=== PATIENT | female | born 1965 | race African-American/Black ===

== ENCOUNTER 2020-01-22 19:59 | Inpatient (IN) | payer MEDICAID ==
[~2020-01-22] VITALS: Ht 167.6 cm; Wt 72.6 kg
[2020-01-22 22:11] LABS: HEMATOCRIT. 38.8 % (36.0-48.0); HEMOGLOBIN. 12.9 g/dL (12.0-16.0); MEAN CORPUSCULAR HEMOGLOBIN 33.5 pg (28.0-32.0); MEAN CORPUSCULAR VOLUME 101.4 fL (81.0-99.0); MEAN PLATELET VOLUME 9.5 fl (7.4-10.4); PLATELET 222 x1000/uL (130-400); RED BLOOD CELL COUNT 3.83 mill/uL (4.2-5.4); RED CELL DISTRIBUTION WIDTH 19.8 % (11.6-14.6)
[2020-01-22 22:17] LABS: CHLORIDE 101 mEq/L (98-107)
[2020-01-22 22:22] LABS: INR 1.1; PARTIAL THROMBOPLASTIN TIME 28.8 sec (23.4-31.0); PROTHROMBIN TIME 11.4 sec (9.6-11.0)
[2020-01-22] MEDS ORDERED: NICARDIPINE 100 MG in SODIUM CHLORIDE 0.9% 60 ML IV PRN (23:15)
[2020-01-22] MEDS ORDERED: MORPHINE SULFATE 2 MG/ML CPJ (NOT FOR IM USE) IV PRN (23:15)
[2020-01-22 23:19] LABS: PLATELET ESTIMATE NORMAL
[2020-01-22] MEDS ORDERED: NICARDIPINE 50 MG in SODIUM CHLORIDE 0.9% 230 ML IV STA (23:23)
[2020-01-23] VITALS (55 sets, daily range): BP systolic 111–172; BP diastolic 62–94
[2020-01-23] MEDS: NICARDIPINE 100 MG in SODIUM CHLORIDE 0.9% 60 ML IV PRN ×2 (09:00→21:36)
[2020-01-23] MEDS ORDERED: ONDANSETRON HCL 4MG/2ML INJ IV PRN (11:15)
[2020-01-23] MEDS ORDERED: NIFEDIPINE XL 30MG TAB PO SCH (13:45)
[2020-01-23] MEDS: PANTOPRAZOLE SODIUM 40 MG/VIAL IV SCH ×2 (14:15→14:20)
[2020-01-23] MEDS: NIFEDIPINE XL 30MG TAB PO SCH (15:13)
[2020-01-23] MEDS: BENAZEPRIL 10MG TABLET PO SCH (15:14)
[2020-01-23] MEDS: SEVELAMER CARBONATE 800 MG TABLET PO SCH (17:29)
[2020-01-23] MEDS: ATORVASTATIN CALCIUM 10MG TABLET PO SCH (20:38)
[2020-01-23] MEDS: CARVEDILOL 6.25 MG TABLET PO SCH (20:38)
[2020-01-24] VITALS (88 sets, daily range): BP systolic 109–181; BP diastolic 57–129
[2020-01-24 07:30] LABS: HEMATOCRIT. 36.4 % (36.0-48.0); HEMOGLOBIN. 12.3 g/dL (12.0-16.0); MEAN CORPUSCULAR HEMOGLOBIN 33.7 pg (28.0-32.0); MEAN CORPUSCULAR VOLUME 99.8 fL (81.0-99.0); MEAN PLATELET VOLUME 8.3 fl (7.4-10.4); PLATELET 204 x1000/uL (130-400); RED BLOOD CELL COUNT 3.64 mill/uL (4.2-5.4); RED CELL DISTRIBUTION WIDTH 19.2 % (11.6-14.6)
[2020-01-24 08:03] LABS: PHOSPHORUS 5.4 mg/dL (2.5-4.9)
[2020-01-24] MEDS: PANTOPRAZOLE SODIUM 40 MG/VIAL IV SCH (09:24)
[2020-01-24] MEDS: SEVELAMER CARBONATE 800 MG TABLET PO SCH ×3 (09:24→18:16)
[2020-01-24] MEDS: FOLIC ACID/VITAMIN B COMP W-C TABLET PO SCH (09:24)
[2020-01-24] MEDS: BENAZEPRIL 10MG TABLET PO SCH (09:25)
[2020-01-24] MEDS: NIFEDIPINE XL 30MG TAB PO SCH (09:25)
[2020-01-24] MEDS: CARVEDILOL 6.25 MG TABLET PO SCH (09:26)
[2020-01-24 14:23] LABS: PLATELET ESTIMATE NORMAL
[2020-01-24] MEDS ORDERED: PIPERACILLIN/TAZOBACTAM 3.375 G in DEXT 5% WATER 100 ML IV SCH (16:00)
[2020-01-24] MEDS: PIPERACILLIN/TAZOBACTAM 2.25 G in DEXTROSE 5% WATER 50 ML IV SCH (18:18)
[2020-01-24] MEDS: ATORVASTATIN CALCIUM 10MG TABLET PO SCH (21:14)
[2020-01-24] MEDS: CARVEDILOL 12.5MG TABLET PO SCH (21:14)
[2020-01-25] VITALS: BP 123/67
[2020-01-25 04:55] VITALS: BP 157/84
[2020-01-25] MEDS: PIPERACILLIN/TAZOBACTAM 2.25 G in DEXTROSE 5% WATER 50 ML IV SCH (05:03)
[2020-01-25] MEDS: SEVELAMER CARBONATE 800 MG TABLET PO SCH ×2 (06:36→13:09)
[2020-01-25 07:55] LABS: HEMATOCRIT. 37.5 % (36.0-48.0); HEMOGLOBIN. 12.4 g/dL (12.0-16.0); MEAN CORPUSCULAR HEMOGLOBIN 33.3 pg (28.0-32.0); MEAN CORPUSCULAR VOLUME 100.7 fL (81.0-99.0); MEAN PLATELET VOLUME 8.8 fl (7.4-10.4); PLATELET 188 x1000/uL (130-400); RED BLOOD CELL COUNT 3.72 mill/uL (4.2-5.4)
[2020-01-25 08:00] VITALS: BP 152/76
[2020-01-25] MEDS ORDERED: BENAZEPRIL 10MG TABLET PO SCH ×2 (09:00→21:00)
[2020-01-25] MEDS ORDERED: FAMOTIDINE 20MG/2ML VIAL IV SCH (09:00)
[2020-01-25] MEDS: FOLIC ACID/VITAMIN B COMP W-C TABLET PO SCH (09:12)
[2020-01-25] MEDS: CARVEDILOL 12.5MG TABLET PO SCH (09:13)
[2020-01-25 10:26] LABS: PLATELET ESTIMATE NORMAL
[2020-01-25 12:00] VITALS: BP 157/77
[2020-01-25 13:36] VITALS: BP 157/77
[2020-01-25] MEDS ORDERED: NIFEDIPINE XL 30MG TAB PO SCH (14:00)
[2020-01-25] MEDS ORDERED: BENA20TA10 MT (17:44)
[2020-01-25] MEDS ORDERED: HYDR-4001 MT (17:44)
[2020-01-25] MEDS ORDERED: CARV25TA47 MT (17:44)
[2020-01-25] MEDS ORDERED: LIP40 MT (17:44)
== END 2020-01-25 15:40 | disposition home or self-care (01) | DRG 44 ==
LOC: ER 19:59 → 5EST 22:57 → ENRESERV 01-23 08:04 → 5WST 01-24 23:58
PROVIDERS: ADMIT Internal Medicine; ATTEND Internal Medicine
PROC: 5A1D70Z Performance of Urinary Filtration, Intermittent, Less than 6 Hours Per Day (ICD-10-PCS; principal; 2020-01-24)
DX: I61.3 Nontraumatic intracerebral hemorrhage in brain stem (principal); I13.2 Hypertensive heart and chronic kidney disease with heart failure and with stage 5 chronic kidney disease, or end stage renal disease; L51.1 Stevens-Johnson syndrome; E11.22 Type 2 diabetes mellitus with diabetic chronic kidney disease; E44.0 Moderate protein-calorie malnutrition; I42.9 Cardiomyopathy, unspecified; E83.39 Other disorders of phosphorus metabolism; N18.6 End stage renal disease; I50.23 Acute on chronic systolic (congestive) heart failure; G89.29 Other chronic pain; K21.9 Gastro-esophageal reflux disease without esophagitis; E78.5 Hyperlipidemia, unspecified; J45.909 Unspecified asthma, uncomplicated; N25.81 Secondary hyperparathyroidism of renal origin; Z82.49 Family history of ischemic heart disease and other diseases of the circulatory system; Z68.25 Body mass index [BMI] 25.0-25.9, adult; Z83.3 Family history of diabetes mellitus; Z86.718 Personal history of other venous thrombosis and embolism; Z90.49 Acquired absence of other specified parts of digestive tract; Z99.2 Dependence on renal dialysis; Z79.899 Other long term (current) drug therapy; Z88.8 Allergy status to other drugs, medicaments and biological substances
CPT/HCPCS: 36415; 70551; 71045; 80048; 80053; 80061; 82962; 83880; 84100; 84145; 84443; 84484; 85025; 93005; 93306; 93970; 99291; C9113; J2270; J2543; J3490; J7050; J7060

== ENCOUNTER 2020-08-27 22:32 | Inpatient (IN) | payer MEDICAID, OTHER ==
[~2020-08-27] VITALS: Ht 167.6 cm; Wt 80.7 kg
[~2020-08-27 22:32] MED LIST: BENA20TA10 MT; CARV25TA47 MT; HYDR-4001 MT; LIP40 MT
[2020-08-28] MEDS ORDERED: ASPIRIN 81MG TABLET PO ONE
[2020-08-28 00:26] LABS: HEMOGLOBIN. 12.1 g/dL (12.0-16.0); MEAN CORPUSCULAR HEMOGLOBIN 31.6 pg (28.0-32.0); MEAN CORPUSCULAR VOLUME 96.7 fL (81.0-99.0); MEAN PLATELET VOLUME 9.3 fl (7.4-10.4); PLATELET 192 x1000/uL (130-400); RED BLOOD CELL COUNT 3.83 mill/uL (4.2-5.4)
[2020-08-28 00:34] LABS: CHLORIDE 101 mEq/L (98-107)
[2020-08-28] MEDS ORDERED: ACETAMINOPHEN 500MG TABLET PO ONE (03:00)
[2020-08-28 03:04] LABS: PLATELET ESTIMATE NORMAL
[2020-08-28] MEDS ORDERED: BENAZEPRIL 10MG TABLET PO SCH (11:15)
[2020-08-28] MEDS ORDERED: ONDANSETRON HCL 4MG/2ML INJ IV PRN (11:15)
[2020-08-28] MEDS ORDERED: ALBUTEROL 6.7GM HFA INHALER ORI PRN (11:15)
[2020-08-28] MEDS: ENOXAPARIN 30MG/0.3ML SYR SUBCUT SCH (12:00)
[2020-08-28] MEDS: CLONIDINE 0.1MG TABLET PO PRN (15:38)
[2020-08-28] MEDS: PIPERACILLIN/TAZOBACTAM 2.25 G in DEXTROSE 5% WATER 50 ML IV SCH (15:43)
[2020-08-28] MEDS: NIFEDIPINE XL 60MG TAB PO SCH (16:15)
[2020-08-28 22:34] LABS: CHLORIDE 105 mEq/L (98-107)
[2020-08-28 23:41] LABS: HEMATOCRIT. 34.7 % (36.0-48.0); HEMOGLOBIN. 11.4 g/dL (12.0-16.0); MEAN CORPUSCULAR HEMOGLOBIN 31.9 pg (28.0-32.0); MEAN CORPUSCULAR VOLUME 97.2 fL (81.0-99.0); MEAN PLATELET VOLUME 9.3 fl (7.4-10.4); PLATELET 146 x1000/uL (130-400); RED BLOOD CELL COUNT 3.57 mill/uL (4.2-5.4); RED CELL DISTRIBUTION WIDTH 20.7 % (11.6-14.6)
[2020-08-29] MEDS ORDERED: SODIUM POLYSTYRENE SULFONATE 15 G/60 ML BOT PO SCH (01:30)
[2020-08-29 04:44] LABS: ATYPICAL LYMPHOCYTES 1; PLATELET ESTIMATE NORMAL
[2020-08-29] MEDS ORDERED: SODIUM POLYSTYRENE SULFONATE 15 G/60 ML BOT PO NR (06:00)
[2020-08-29] MEDS: PIPERACILLIN/TAZOBACTAM 2.25 G in DEXTROSE 5% WATER 50 ML IV SCH (06:28)
[2020-08-29 06:57] LABS: BASOPHILS % 0.7 % (0.0-2.0); EOSINOPHILS % 0.1 % (0.0-5.0); HEMATOCRIT. 35.5 % (36.0-48.0); HEMOGLOBIN. 11.7 g/dL (12.0-16.0); LYMPHOCYTES % 14.4 % (20.0-50.0); MEAN CORPUSCULAR HEMOGLOBIN 31.9 pg (28.0-32.0); MEAN CORPUSCULAR VOLUME 96.7 fL (81.0-99.0); MEAN PLATELET VOLUME 9.3 fl (7.4-10.4); MONOCYTES % 12.6 % (2.0-8.0); NEUTROPHILS % 72.2 % (40.0-76.0); PLATELET 143 x1000/uL (130-400); RED BLOOD CELL COUNT 3.68 mill/uL (4.2-5.4); RED CELL DISTRIBUTION WIDTH 21.2 % (11.6-14.6)
[2020-08-29 07:17] LABS: CHLORIDE 106 mEq/L (98-107)
[2020-08-29 07:23] LABS: PHOSPHORUS 5.7 mg/dL (2.5-4.9)
[2020-08-29] MEDS: ENOXAPARIN 30MG/0.3ML SYR SUBCUT SCH (11:51)
[2020-08-29] MEDS: NIFEDIPINE XL 60MG TAB PO SCH ×3 (11:51→21:00)
[2020-08-29] MEDS: BENAZEPRIL 10MG TABLET PO SCH ×2 (12:00→21:00)
[2020-08-30] MEDS: ACETAMINOPHEN 325MG TABLET PO PRN ×4 (01:41→23:03)
[2020-08-30] MEDS: MORPHINE SULFATE 2 MG/ML CPJ (NOT FOR IM USE) IV PRN (04:46)
[2020-08-30 08:51] LABS: BASOPHILS % 0.3 % (0.0-2.0); EOSINOPHILS % 0.1 % (0.0-5.0); LYMPHOCYTES % 7.1 % (20.0-50.0); MEAN CORPUSCULAR HEMOGLOBIN 32.7 pg (28.0-32.0); MEAN CORPUSCULAR VOLUME 97.7 fL (81.0-99.0); MEAN PLATELET VOLUME 10.4 fl (7.4-10.4); MONOCYTES % 11.3 % (2.0-8.0); NEUTROPHILS % 81.2 % (40.0-76.0); PLATELET 176 x1000/uL (130-400); RED BLOOD CELL COUNT 2.76 mill/uL (4.2-5.4); RED CELL DISTRIBUTION WIDTH 20.4 % (11.6-14.6)
[2020-08-30 08:58] LABS: PHOSPHORUS 5.6 mg/dL (2.5-4.9)
[2020-08-30] MEDS: BENAZEPRIL 10MG TABLET PO SCH ×2 (09:00→21:00)
[2020-08-30] MEDS: NIFEDIPINE XL 60MG TAB PO SCH ×2 (09:00→21:00)
[2020-08-30 12:00] VITALS: BP 106/64
[2020-08-30] MEDS: PIPERACILLIN/TAZOBACTAM 2.25 G in DEXTROSE 5% WATER 50 ML IV SCH ×2 (12:08→18:04)
[2020-08-30] MEDS: ENOXAPARIN 30MG/0.3ML SYR SUBCUT SCH (12:11)
[2020-08-30 13:47] VITALS: BP 170/76
[2020-08-30 16:00] VITALS: BP 138/43
[2020-08-30] MEDS ORDERED: INFLUENZA VACCINE 05/PF 0.5 ML VIAL IM ONE (19:00)
[2020-08-30] MEDS ORDERED: PNEUMOCOCCAL 23-VAL P-SAC VAC 0.5 ML IM ONE (19:00)
[2020-08-30 20:00] VITALS: BP 111/75
[2020-08-30] MEDS: HYDRALAZINE HCL 50MG TABLET PO SCH (21:00)
[2020-08-30] MEDS ORDERED: HEPARIN SODIUM 1,000 UNIT/1ML VIAL IV NR (23:30)
[2020-08-31] VITALS: BP 114/80
[2020-08-31] MEDS: NIFEDIPINE XL 60MG TAB PO SCH ×3 (00:27→22:25)
[2020-08-31] MEDS: BENAZEPRIL 10MG TABLET PO SCH ×3 (00:28→22:24)
[2020-08-31] MEDS ORDERED: METOPROLOL TARTRATE 50MG TABLET PO SCH ×2 (01:00→09:00)
[2020-08-31] MEDS: PIPERACILLIN/TAZOBACTAM 2.25 G in DEXTROSE 5% WATER 50 ML IV SCH ×3 (02:10→18:49)
[2020-08-31 04:00] VITALS: BP_SYST 114; BP_SYST 144; BP_DIAS 80; BP_DIAS 89
[2020-08-31 07:59] LABS: BASOPHILS % 0.3 % (0.0-2.0); LYMPHOCYTES % 8.5 % (20.0-50.0); MEAN CORPUSCULAR HEMOGLOBIN 31.7 pg (28.0-32.0); MEAN CORPUSCULAR VOLUME 95.6 fL (81.0-99.0); MONOCYTES % 9.5 % (2.0-8.0); NEUTROPHILS % 81.7 % (40.0-76.0); PLATELET 157 x1000/uL (130-400); RED BLOOD CELL COUNT 3.57 mill/uL (4.2-5.4); RED CELL DISTRIBUTION WIDTH 20.4 % (11.6-14.6)
[2020-08-31 08:12] LABS: CHLORIDE 103 mEq/L (98-107)
[2020-08-31 08:13] LABS: HEMATOCRIT. 34.1 % (36.0-48.0); HEMOGLOBIN. 11.3 g/dL (12.0-16.0)
[2020-08-31 08:20] LABS: PHOSPHORUS 5.6 mg/dL (2.5-4.9)
[2020-08-31 08:57] LABS: C REACTIVE PROTEIN QUANT > 190.0 mg/L (0.0-3.0)
[2020-08-31 09:32] VITALS: BP 134/73
[2020-08-31] MEDS: HYDRALAZINE HCL 50MG TABLET PO SCH ×2 (10:27→22:24)
[2020-08-31] MEDS: ENOXAPARIN 30MG/0.3ML SYR SUBCUT SCH (10:28)
[2020-08-31 12:00] VITALS: BP 140/51
[2020-08-31 16:00] VITALS: BP 119/39
[2020-08-31] MEDS: ACETAMINOPHEN 325MG TABLET PO PRN (18:50)
[2020-08-31 20:00] VITALS: BP 124/68
[2020-08-31] MEDS: CARVEDILOL 12.5MG TABLET PO SCH (22:25)
[2020-09-01] VITALS (7 sets, daily range): BP systolic 93–107; BP diastolic 22–68
[2020-09-01] MEDS: PIPERACILLIN/TAZOBACTAM 2.25 G in DEXTROSE 5% WATER 50 ML IV SCH ×3 (05:08→19:38)
[2020-09-01] MEDS: NIFEDIPINE XL 60MG TAB PO SCH ×2 (09:00→22:59)
[2020-09-01] MEDS ORDERED: HYDRALAZINE HCL 25MG TABLET PO SCH (09:00)
[2020-09-01] MEDS: CARVEDILOL 12.5MG TABLET PO SCH ×2 (09:00→23:00)
[2020-09-01] MEDS: ENOXAPARIN 30MG/0.3ML SYR SUBCUT SCH (09:13)
[2020-09-01] MEDS: DEXAMETHASONE 4MG/ML 1ML VIAL IV SCH (09:13)
[2020-09-02] VITALS: BP 105/65
[2020-09-02 04:00] VITALS: BP 109/63
[2020-09-02 05:46] LABS: PHOSPHORUS 5.8 mg/dL (2.5-4.9)
[2020-09-02 07:05] LABS: BASOPHILS % 0.5 % (0.0-2.0); HEMATOCRIT. 31.7 % (36.0-48.0); HEMOGLOBIN. 10.6 g/dL (12.0-16.0); LYMPHOCYTES % 10.2 % (20.0-50.0); MEAN CORPUSCULAR HEMOGLOBIN 31.9 pg (28.0-32.0); MEAN CORPUSCULAR VOLUME 95.6 fL (81.0-99.0); MEAN PLATELET VOLUME 11.1 fl (7.4-10.4); MONOCYTES % 8.2 % (2.0-8.0); NEUTROPHILS % 81.1 % (40.0-76.0); PLATELET 146 x1000/uL (130-400); RED BLOOD CELL COUNT 3.31 mill/uL (4.2-5.4); RED CELL DISTRIBUTION WIDTH 20.4 % (11.6-14.6)
[2020-09-02 08:00] VITALS: BP 110/70
[2020-09-02] MEDS: NIFEDIPINE XL 60MG TAB PO SCH (08:12)
[2020-09-02] MEDS: CARVEDILOL 12.5MG TABLET PO SCH (08:12)
[2020-09-02] MEDS: DEXAMETHASONE 4MG/ML 1ML VIAL IV SCH (09:22)
[2020-09-02] MEDS: ENOXAPARIN 30MG/0.3ML SYR SUBCUT SCH (09:23)
[2020-09-02] MEDS: MORPHINE SULFATE 2 MG/ML CPJ (NOT FOR IM USE) IV PRN (09:54)
[2020-09-02 12:00] VITALS: BP 126/72
[2020-09-02 16:00] VITALS: BP 101/61
[2020-09-02 20:00] VITALS: BP 113/64
[2020-09-03] MEDS: CARVEDILOL 12.5MG TABLET PO SCH ×2 (00:15→09:00)
[2020-09-03] MEDS: MORPHINE SULFATE 2 MG/ML CPJ (NOT FOR IM USE) IV PRN (02:56)
[2020-09-03 04:00] VITALS: BP 120/75
[2020-09-03 07:26] LABS: BASOPHILS % 0.4 % (0.0-2.0); HEMATOCRIT. 34.4 % (36.0-48.0); HEMOGLOBIN. 11.1 g/dL (12.0-16.0); LYMPHOCYTES % 7.9 % (20.0-50.0); MEAN CORPUSCULAR HEMOGLOBIN 31.3 pg (28.0-32.0); MEAN CORPUSCULAR VOLUME 97.1 fL (81.0-99.0); MEAN PLATELET VOLUME 11.2 fl (7.4-10.4); MONOCYTES % 8.7 % (2.0-8.0); PLATELET 186 x1000/uL (130-400); RED BLOOD CELL COUNT 3.55 mill/uL (4.2-5.4); RED CELL DISTRIBUTION WIDTH 19.8 % (11.6-14.6)
[2020-09-03] MEDS: ENOXAPARIN 30MG/0.3ML SYR SUBCUT SCH (09:00)
[2020-09-03] MEDS ORDERED: NIFEDIPINE XL 30MG TAB PO SCH (09:00)
[2020-09-03] MEDS: DEXAMETHASONE 4MG/ML 1ML VIAL IV SCH (09:00)
[2020-09-03 09:52] VITALS: BP 102/66
[2020-09-03 13:36] VITALS: BP 117/64
[2020-09-03] MEDS: ACETAMINOPHEN 325MG TABLET PO PRN (16:27)
[2020-09-03 20:00] VITALS: BP 119/62
[2020-09-03] MEDS: CARVEDILOL 3.125 MG TABLET PO SCH (22:23)
[2020-09-04] VITALS: BP 120/70
[2020-09-04 04:00] VITALS: BP 143/83
[2020-09-04 09:08] LABS: BASOPHILS % 0.5 % (0.0-2.0); EOSINOPHILS % 0.1 % (0.0-5.0); HEMATOCRIT. 33.7 % (36.0-48.0); HEMOGLOBIN. 11.1 g/dL (12.0-16.0); LYMPHOCYTES % 10.5 % (20.0-50.0); MEAN CORPUSCULAR VOLUME 97.3 fL (81.0-99.0); MONOCYTES % 11.4 % (2.0-8.0); NEUTROPHILS % 77.5 % (40.0-76.0); PLATELET 182 x1000/uL (130-400); RED BLOOD CELL COUNT 3.47 mill/uL (4.2-5.4); RED CELL DISTRIBUTION WIDTH 20.4 % (11.6-14.6)
[2020-09-04 09:53] LABS: PHOSPHORUS 6.4 mg/dL (2.5-4.9)
[2020-09-04 09:54] VITALS: BP 135/70
[2020-09-04] MEDS: DEXAMETHASONE 4MG/ML 1ML VIAL IV SCH (10:16)
[2020-09-04] MEDS: CARVEDILOL 3.125 MG TABLET PO SCH ×2 (10:16→20:59)
[2020-09-04] MEDS: ENOXAPARIN 30MG/0.3ML SYR SUBCUT SCH (10:17)
[2020-09-04 13:24] VITALS: BP 149/72
[2020-09-04 16:51] VITALS: BP 148/65
[2020-09-04 20:00] VITALS: BP 153/68
[2020-09-05] VITALS: BP 138/65
[2020-09-05 04:00] VITALS: BP 140/68
[2020-09-05 08:00] VITALS: BP 161/72
[2020-09-05] MEDS: ENOXAPARIN 30MG/0.3ML SYR SUBCUT SCH (10:00)
[2020-09-05] MEDS: CARVEDILOL 3.125 MG TABLET PO SCH ×2 (10:01→21:00)
[2020-09-05 11:52] VITALS: BP 148/70
[2020-09-05] MEDS: DEXAMETHASONE 4MG/ML 1ML VIAL IV SCH (12:30)
[2020-09-05 16:40] VITALS: BP 171/89
[2020-09-05] MEDS: CLONIDINE 0.1MG TABLET PO PRN (18:27)
[2020-09-05 22:07] VITALS: BP 157/82
[2020-09-06] VITALS: BP 174/80
[2020-09-06] MEDS: CLONIDINE 0.1MG TABLET PO PRN (03:02)
[2020-09-06 04:00] VITALS: BP 196/74
[2020-09-06 08:00] VITALS: BP 155/44
[2020-09-06] MEDS: ENOXAPARIN 30MG/0.3ML SYR SUBCUT SCH (11:15)
[2020-09-06] MEDS: CARVEDILOL 3.125 MG TABLET PO SCH ×2 (11:15→21:17)
[2020-09-06] MEDS: DEXAMETHASONE 4MG/ML 1ML VIAL IV SCH (11:16)
[2020-09-06 12:00] VITALS: BP 143/76
[2020-09-06 16:00] VITALS: BP 161/43
[2020-09-06 20:00] VITALS: BP 152/80
[2020-09-07] VITALS: BP 148/66
[2020-09-07 04:00] VITALS: BP 160/89
[2020-09-07 07:01] LABS: BASOPHILS % 0.4 % (0.0-2.0); EOSINOPHILS % 0.1 % (0.0-5.0); HEMATOCRIT. 34.1 % (36.0-48.0); HEMOGLOBIN. 11.1 g/dL (12.0-16.0); LYMPHOCYTES % 10.1 % (20.0-50.0); MEAN CORPUSCULAR HEMOGLOBIN 31.2 pg (28.0-32.0); MEAN CORPUSCULAR VOLUME 95.6 fL (81.0-99.0); MEAN PLATELET VOLUME 10.1 fl (7.4-10.4); MONOCYTES % 9.5 % (2.0-8.0); NEUTROPHILS % 79.9 % (40.0-76.0); PLATELET 260 x1000/uL (130-400); RED BLOOD CELL COUNT 3.57 mill/uL (4.2-5.4); RED CELL DISTRIBUTION WIDTH 20.6 % (11.6-14.6)
[2020-09-07 08:00] VITALS: BP 189/57
[2020-09-07] MEDS: ENOXAPARIN 30MG/0.3ML SYR SUBCUT SCH (11:21)
[2020-09-07] MEDS: DEXAMETHASONE 4MG/ML 1ML VIAL IV SCH (11:24)
[2020-09-07] MEDS: CARVEDILOL 3.125 MG TABLET PO SCH ×2 (11:24→21:00)
[2020-09-07 12:00] VITALS: BP 152/80
[2020-09-07 16:00] VITALS: BP 157/65
[2020-09-07 20:00] VITALS: BP 125/80
[2020-09-08] VITALS: BP 130/60
[2020-09-08 04:00] VITALS: BP 161/76
[2020-09-08 05:37] LABS: PHOSPHORUS 7.5 mg/dL (2.5-4.9)
[2020-09-08 06:32] LABS: HEMATOCRIT. 32.7 % (36.0-48.0); MEAN CORPUSCULAR HEMOGLOBIN 32.8 pg (28.0-32.0); MEAN CORPUSCULAR VOLUME 97.5 fL (81.0-99.0); MEAN PLATELET VOLUME 9.1 fl (7.4-10.4); PLATELET 266 x1000/uL (130-400); RED BLOOD CELL COUNT 3.35 mill/uL (4.2-5.4); RED CELL DISTRIBUTION WIDTH 20.6 % (11.6-14.6)
[2020-09-08 08:00] VITALS: BP 159/92
[2020-09-08] MEDS: ENOXAPARIN 30MG/0.3ML SYR SUBCUT SCH (10:49)
[2020-09-08] MEDS: CARVEDILOL 3.125 MG TABLET PO SCH ×2 (10:50→20:45)
[2020-09-08] MEDS: DEXAMETHASONE 4MG/ML 1ML VIAL IV SCH (10:51)
[2020-09-08 12:00] VITALS: BP 139/73
[2020-09-08 16:00] VITALS: BP 131/71
[2020-09-08 20:00] VITALS: BP 156/75
[2020-09-08 20:27] LABS: PLATELET ESTIMATE NORMAL
[2020-09-09] VITALS: BP 182/83
[2020-09-09 04:00] VITALS: BP 123/68
[2020-09-09] MEDS: CLONIDINE 0.1MG TABLET PO PRN (06:04)
[2020-09-09 08:00] VITALS: BP 184/86
[2020-09-09] MEDS: ENOXAPARIN 30MG/0.3ML SYR SUBCUT SCH (09:43)
[2020-09-09] MEDS: DEXAMETHASONE 4MG/ML 1ML VIAL IV SCH (09:43)
[2020-09-09] MEDS: CARVEDILOL 3.125 MG TABLET PO SCH (09:44)
[2020-09-09 12:00] VITALS: BP 156/72
[2020-09-09 16:00] VITALS: BP 156/64
[2020-09-09 20:00] VITALS: BP 149/74
[2020-09-09] MEDS: CARVEDILOL 12.5MG TABLET PO SCH (20:58)
[2020-09-09 22:00] LABS: HEMATOCRIT. 32.4 % (36.0-48.0); HEMOGLOBIN. 10.9 g/dL (12.0-16.0); MEAN CORPUSCULAR HEMOGLOBIN 32.2 pg (28.0-32.0); MEAN CORPUSCULAR VOLUME 95.5 fL (81.0-99.0); MEAN PLATELET VOLUME 9.9 fl (7.4-10.4); PLATELET 258 x1000/uL (130-400); RED BLOOD CELL COUNT 3.39 mill/uL (4.2-5.4); RED CELL DISTRIBUTION WIDTH 20.6 % (11.6-14.6)
[2020-09-09 22:33] LABS: PLATELET ESTIMATE NORMAL
[2020-09-10] VITALS: BP 158/72
[2020-09-10] MEDS: CLONIDINE 0.1MG TABLET PO PRN (03:55)
[2020-09-10] MEDS: ACETAMINOPHEN 325MG TABLET PO PRN ×2 (03:59→10:29)
[2020-09-10 04:00] VITALS: BP 193/86
[2020-09-10 06:26] LABS: HEMATOCRIT. 32.7 % (36.0-48.0); HEMOGLOBIN. 10.9 g/dL (12.0-16.0); MEAN CORPUSCULAR HEMOGLOBIN 32.2 pg (28.0-32.0); MEAN CORPUSCULAR VOLUME 96.7 fL (81.0-99.0); MEAN PLATELET VOLUME 9.2 fl (7.4-10.4); PLATELET 283 x1000/uL (130-400); RED BLOOD CELL COUNT 3.38 mill/uL (4.2-5.4); RED CELL DISTRIBUTION WIDTH 21.1 % (11.6-14.6)
[2020-09-10 08:00] VITALS: BP 135/71
[2020-09-10] MEDS: CARVEDILOL 12.5MG TABLET PO SCH ×2 (09:00→22:21)
[2020-09-10 09:16] LABS: PHOSPHORUS 7.3 mg/dL (2.5-4.9)
[2020-09-10] MEDS: ENOXAPARIN 30MG/0.3ML SYR SUBCUT SCH (10:28)
[2020-09-10] MEDS: DEXAMETHASONE 4MG/ML 1ML VIAL IV SCH (10:29)
[2020-09-10 12:00] VITALS: BP 144/72
[2020-09-10 12:23] LABS: PLATELET ESTIMATE NORMAL
[2020-09-10 17:05] VITALS: BP 182/68
[2020-09-10] MEDS ORDERED: ALTEPLASE 2MG/VIAL INJ NR (18:00)
[2020-09-10 20:00] VITALS: BP 178/84
[2020-09-10] MEDS: CEFEPIME 1,000 MG in DEXTROSE 5% WATER 50 ML IV SCH (22:21)
[2020-09-11] VITALS: BP 132/51
[2020-09-11] MEDS: ACETAMINOPHEN 325MG TABLET PO PRN (01:03)
[2020-09-11 06:20] LABS: MEAN CORPUSCULAR HEMOGLOBIN 31.8 pg (28.0-32.0); MEAN PLATELET VOLUME 8.7 fl (7.4-10.4); PLATELET 184 x1000/uL (130-400); RED BLOOD CELL COUNT 3.13 mill/uL (4.2-5.4); RED CELL DISTRIBUTION WIDTH 21.6 % (11.6-14.6)
[2020-09-11 07:57] LABS: PHOSPHORUS 8.8 mg/dL (2.5-4.9)
[2020-09-11 08:00] VITALS: BP 160/70
[2020-09-11] MEDS: CARVEDILOL 12.5MG TABLET PO SCH ×2 (09:00→23:56)
[2020-09-11] MEDS: ENOXAPARIN 30MG/0.3ML SYR SUBCUT SCH (09:00)
[2020-09-11] MEDS: DEXAMETHASONE 4MG/ML 1ML VIAL IV SCH (09:00)
[2020-09-11 12:00] VITALS: BP 166/76
[2020-09-11] MEDS ORDERED: SODIUM BICARBONATE 8.4% 1 MEQ/ML 50ML SYR IV NR (15:00)
[2020-09-11] MEDS ORDERED: FUROSEMIDE 100MG/10ML VIAL IVP NR (15:00)
[2020-09-11 16:00] VITALS: BP 158/74
[2020-09-11] MEDS ORDERED: SODIUM POLYSTYRENE SULFONATE 15 G/60 ML BOT PO NR (16:00)
[2020-09-11 17:48] LABS: PLATELET ESTIMATE NORMAL
[2020-09-11 20:00] VITALS: BP 140/62
[2020-09-11] MEDS: CEFEPIME 1,000 MG in DEXTROSE 5% WATER 50 ML IV SCH (23:56)
[2020-09-12] VITALS: BP 145/67
[2020-09-12] MEDS: ACETAMINOPHEN 325MG TABLET PO PRN (00:01)
[2020-09-12 04:00] VITALS: BP 156/47
[2020-09-12 08:00] VITALS: BP 183/77
[2020-09-12 10:23] LABS: BASOPHILS % 0.5 % (0.0-2.0); EOSINOPHILS % 0.9 % (0.0-5.0); HEMATOCRIT. 29.1 % (36.0-48.0); HEMOGLOBIN. 9.7 g/dL (12.0-16.0); LYMPHOCYTES % 7.8 % (20.0-50.0); MEAN CORPUSCULAR HEMOGLOBIN 31.8 pg (28.0-32.0); MEAN CORPUSCULAR VOLUME 95.8 fL (81.0-99.0); MEAN PLATELET VOLUME 8.1 fl (7.4-10.4); MONOCYTES % 5.6 % (2.0-8.0); NEUTROPHILS % 85.2 % (40.0-76.0); PLATELET 173 x1000/uL (130-400); RED BLOOD CELL COUNT 3.04 mill/uL (4.2-5.4); RED CELL DISTRIBUTION WIDTH 22.9 % (11.6-14.6)
[2020-09-12 10:53] LABS: PHOSPHORUS 7.2 mg/dL (2.5-4.9)
[2020-09-12 12:00] VITALS: BP 118/54
[2020-09-12] MEDS: DEXAMETHASONE 4MG/ML 1ML VIAL IV SCH (13:03)
[2020-09-12] MEDS: CARVEDILOL 12.5MG TABLET PO SCH ×2 (13:03→23:13)
[2020-09-12] MEDS: ENOXAPARIN 30MG/0.3ML SYR SUBCUT SCH (13:03)
[2020-09-12 16:00] VITALS: BP 136/62
[2020-09-12 20:00] VITALS: BP 165/80
[2020-09-12 21:13] LABS: PLATELET ESTIMATE NORMAL
[2020-09-12] MEDS: CEFEPIME 1,000 MG in DEXTROSE 5% WATER 50 ML IV SCH (23:12)
[2020-09-13] VITALS: BP 186/71
[2020-09-13 04:00] VITALS: BP 169/85
[2020-09-13 08:00] VITALS: BP 190/91
[2020-09-13] MEDS: CARVEDILOL 12.5MG TABLET PO SCH ×2 (09:50→20:42)
[2020-09-13] MEDS: DEXAMETHASONE 4MG/ML 1ML VIAL IV SCH (09:51)
[2020-09-13] MEDS: ENOXAPARIN 30MG/0.3ML SYR SUBCUT SCH (09:51)
[2020-09-13 12:00] VITALS: BP 171/86
[2020-09-13] MEDS: CLONIDINE 0.1MG TABLET PO PRN (13:27)
[2020-09-13 14:15] LABS: HEMATOCRIT. 27.8 % (36.0-48.0); HEMOGLOBIN. 9.2 g/dL (12.0-16.0); MEAN CORPUSCULAR HEMOGLOBIN 32.3 pg (28.0-32.0); MEAN CORPUSCULAR VOLUME 97.2 fL (81.0-99.0); MEAN PLATELET VOLUME 8.5 fl (7.4-10.4); PLATELET 146 x1000/uL (130-400); RED BLOOD CELL COUNT 2.86 mill/uL (4.2-5.4)
[2020-09-13 14:29] LABS: PHOSPHORUS 7.3 mg/dL (2.5-4.9)
[2020-09-13 16:00] VITALS: BP 160/85
[2020-09-13 17:31] LABS: PLATELET ESTIMATE NORMAL
[2020-09-13 20:00] VITALS: BP 185/85
[2020-09-13] MEDS: CEFEPIME 1,000 MG in DEXTROSE 5% WATER 50 ML IV SCH (20:41)
[2020-09-14] VITALS: BP 170/86
[2020-09-14 04:00] VITALS: BP 157/80
[2020-09-14 07:04] LABS: BASOPHILS % 0.5 % (0.0-2.0); LYMPHOCYTES % 5.3 % (20.0-50.0); MEAN CORPUSCULAR HEMOGLOBIN 32.3 pg (28.0-32.0); MEAN CORPUSCULAR VOLUME 97.3 fL (81.0-99.0); MONOCYTES % 5.4 % (2.0-8.0); NEUTROPHILS % 88.8 % (40.0-76.0); PLATELET 129 x1000/uL (130-400); RED BLOOD CELL COUNT 2.77 mill/uL (4.2-5.4)
[2020-09-14 07:58] LABS: PHOSPHORUS 8.3 mg/dL (2.5-4.9)
[2020-09-14 08:00] VITALS: BP 163/77
[2020-09-14] MEDS: CARVEDILOL 12.5MG TABLET PO SCH (09:29)
[2020-09-14] MEDS: ENOXAPARIN 30MG/0.3ML SYR SUBCUT SCH (09:30)
[2020-09-14] MEDS: DEXAMETHASONE 4MG/ML 1ML VIAL IV SCH (09:30)
[2020-09-14 12:00] VITALS: BP 154/85
[2020-09-14] MEDS ORDERED: CARV25TA47 MT (13:49)
[2020-09-14 16:21] VITALS: BP 142/79
== END 2020-09-14 17:20 | disposition home or self-care (01) | DRG 720 ==
LOC: ER 22:32 → MICUSO 08-28 03:34 → 8WST 08-30 09:06
PROVIDERS: ADMIT Internal Medicine; ATTEND Internal Medicine
PROC: 5A1D70Z Performance of Urinary Filtration, Intermittent, Less than 6 Hours Per Day (ICD-10-PCS; principal; 2020-08-29)
PROC: 5A1D70Z Performance of Urinary Filtration, Intermittent, Less than 6 Hours Per Day (ICD-10-PCS; 2020-08-30)
PROC: 5A1D70Z Performance of Urinary Filtration, Intermittent, Less than 6 Hours Per Day (ICD-10-PCS; 2020-09-03)
PROC: 5A1D80Z Performance of Urinary Filtration, Prolonged Intermittent, 6-18 hours Per Day (ICD-10-PCS; 2020-09-07)
PROC: 5A1D70Z Performance of Urinary Filtration, Intermittent, Less than 6 Hours Per Day (ICD-10-PCS; 2020-09-11)
PROC: 5A1D70Z Performance of Urinary Filtration, Intermittent, Less than 6 Hours Per Day (ICD-10-PCS; 2020-09-14)
DX: A41.89 Other specified sepsis (principal); U07.1 COVID-19; J96.00 Acute respiratory failure, unspecified whether with hypoxia or hypercapnia; J45.909 Unspecified asthma, uncomplicated; N18.6 End stage renal disease; I13.2 Hypertensive heart and chronic kidney disease with heart failure and with stage 5 chronic kidney disease, or end stage renal disease; I50.23 Acute on chronic systolic (congestive) heart failure; E11.22 Type 2 diabetes mellitus with diabetic chronic kidney disease; I48.20 Chronic atrial fibrillation, unspecified; J12.82 Pneumonia due to coronavirus disease 2019; Z99.2 Dependence on renal dialysis; Z88.6 Allergy status to analgesic agent; Z88.8 Allergy status to other drugs, medicaments and biological substances; Z79.891 Long term (current) use of opiate analgesic
CPT/HCPCS: 36415; 71045; 80048; 80053; 82728; 83735; 83880; 84100; 84145; 84484; 85025; 85379; 86140; 87635; 90686; 90732; 93005; 96365; 96372; 99285; C1893; J0692; J1100; J1650; J2270; J2405; J2543; J2997; J7040; J7060